=== PATIENT | male | born 1970 | race African-American/Black ===

== ENCOUNTER 2016-12-15 13:54 | Emergency (ER) | payer OTHER ==
[2016-12-15] MEDS ORDERED: Aspirin Low Dose CHEW TAB* 81 MG PO ONE (14:47)
[2016-12-15] MEDS ORDERED: NS 0.9% 1000 ML* 1,000 ML IV ONE (14:47)
[2016-12-15 15:20] LABS: Hematocrit 48 % (42-52); Hemoglobin 15.5 g/dl (14.0-18.0); Mean Corpuscular HGB Conc 32 g/dl (31-36); Mean Corpuscular Hemoglobin 26 pg (27-31); Mean Corpuscular Volume 82 fL (80-94); Mean Platelet Volume 7 um3 (7.4-10.4); Red Blood Count 5.86 10^6/ul (4.0-5.4); Red Cell Distribution Width 14 % (10.5-15); White Blood Count 6.4 10^3/ul (3.5-10.8)
--- NOTE | 2016-12-15 15:20 | RAD ---
Indication: LEFT arm pain. Hypertension. Comparison: No relevant prior exams available on the [facility] for comparison. Technique: Upright AP 1458 hours Report: Accounting for superimposed soft tissues with large body habitus the lungs and pleural spaces are clear. Negative for pneumothorax. The heart, pulmonary vasculature, and mediastinal contours are unremarkable. IMPRESSION: No evidence for acute intrathoracic disease.
[2016-12-15 15:36] LABS: Albumin 4.4 g/dL (3.2-5.2); BUN/Creatinine Ratio 11.7 (8-20); Calcium 9.4 mg/dL (8.6-10.3); EGFR African American 111.6 (>60); EGFR Non-African American 86.8 (>60); Globulin 3.2 g/dL (2-4); Magnesium 2.1 mg/dL (1.9-2.7); Potassium 3.7 mmol/L (3.5-5.0); Total Bilirubin 0.4 mg/dL (0.2-1.0); Total Protein 7.6 g/dL (6.4-8.9)
[2016-12-15 15:37] LABS: Troponin I 0.01 ng/mL (<0.04)
--- NOTE | 2016-12-15 16:17 | RAD ---
INDICATION: Atraumatic neck and left arm pain COMPARISON: None TECHNIQUE: Noncontrast axial source images was performed from the skull base to the thoracic inlet. Coronal and and sagittal reformatted images were generated. FINDINGS: Vertebrae: There is no fracture or acute focal bony lesion. Alignment: Cervical spine straightening. C1-C2: The atlantodental interval is normal. C2-C3: No significant CT abnormalities. C3-C4 mild disc space narrowing with degenerative endplate changes. Minor posterior spondylitic ridge formation moderate bilateral foraminal narrowing left greater than right. C4-C5 minor degenerative disc space narrowing. Anterior vertebral spurring. Posterior spondylitic ridge duration with uncinate process spurring moderate bilateral foraminal narrowing. C5-C6: Moderate degenerative disc space disease with anterior vertebral spurring and endplate changes. Uncinate process spurring and posterior systolic ridge formation. Moderate bilateral foraminal narrowing. C6-C7 moderate disc space narrowing with posterior spondylitic ridge formation and uncinate process spurring. Mild bilateral foraminal narrowing C7-T1: No significant CT abnormalities. Note that MR imaging is more sensitive means to evaluate the canal and neuroforamina. Brain: The visualized brain appears unremarkable. Soft tissues: The visualized soft tissue elements of the neck are unremarkable. The prevertebral soft tissues appear normal. The lung apices are clear. IMPRESSION: ADVANCED MULTILEVEL DEGENERATIVE DISC DISEASE WITH BILATERAL FORAMINAL NARROWING
[2016-12-15 17:28] VITALS: BP 158/99
[2016-12-15] MEDS ORDERED: Ibuprofen TAB* 400 MG PO ONE (17:56)
[2016-12-15] MEDS ORDERED: Ibuprofen TAB* 800 MG PO ONE (17:57)
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
== END 2016-12-15 18:04 | disposition home or self-care (01) ==
LOC: ED 13:54
DX: M79.602 Pain in left arm (principal); M50.30 Other cervical disc degeneration, unspecified cervical region; M54.9 Dorsalgia, unspecified; F17.210 Nicotine dependence, cigarettes, uncomplicated
CPT/HCPCS: 36415; 71010; 72125; 80053; 82550; 82553; 83605; 83735; 83880; 84484; 85025; 85379; 85610; 85730; 93005; 99282; A9270-GY